=== PATIENT | female | born 1965 | race Two or more races ===

== ENCOUNTER 2016-12-23 09:52 | Observation (INO) | payer BC ==
[~2016-12-23] VITALS: Ht 149.9 cm; Wt 73.9 kg
[2016-12-23 10:39] LABS: HEMATOCRIT 39.3 % (36.0-46.0); MCH 31.7 PG (29.0-34.0); MCHC 33.6 G/DL (30.0-36.0); MCV 94.2 FL (83-99); PLATELET COUNT 165 K/uL (156-360); RBC DIS.WIDTH-CV 14.1 % (11.8-14.6); RED BLOOD COUNT 4.17 M/uL (3.80-5.20); WHITE BLOOD COUNT 7.2 K/uL (4.1-10.2)
[2016-12-23 10:48] LABS: CHLORIDE 108 mEq/L (99-109); POTASSIUM 3.7 mEq/L (3.7-5.4); SODIUM 143 mEq/L (136-147)
[2016-12-23 10:50] LABS: GLUCOSE 105 mg/dL (70-99)
[2016-12-23 10:51] LABS: ANION GAP 11 MEQ/L (2-14)
[2016-12-23 10:54] LABS: GFR ESTIMATE (CALCULATED) > 59 mL/min/; UREA NITROGEN (BUN) 10 mg/dL (9-23)
[2016-12-23 11:00] LABS: TROP-I INTERPRETATION NEGATIVE; TROPONIN-I < 0.01 ng/mL (0.0-0.30)
[2016-12-23 11:20] LABS: D-DIMER ELISA 0.25 mg/L FEU (< 0.57)
[2016-12-23] MEDS ORDERED: PEPCID20 MG PO (13:52)
[2016-12-23] MEDS ORDERED: ONE DAILY FOR1 EAC3 PO (13:52)
[2016-12-23 14:55] LABS: TROP-I INTERPRETATION NEGATIVE; TROPONIN-I < 0.01 ng/mL (0.0-0.30)
[2016-12-23 16:51] LABS: HDL CHOLESTEROL 64 MG/DL (Desirable>=50); LDL CHOLESTEROL 112 mg/dL (Desirable<100); NON-HDL CHOLESTEROL 143 mg/dL (Desirable<160); TOTAL CHOLESTEROL 207 mg/dL (Desirable<200); TRIGLYCERIDES 155 MG/DL (Normal: <150)
[2016-12-23 16:54] VITALS: BP 144/85
[2016-12-23 18:08] LABS: Estimated Average Glucose 108 mg/dL (70-123); HEMOGLOBIN A1c (GLYCOHEMOGLOB) 5.4 % HGB (Below 5.7)
[2016-12-23 19:09] VITALS: BP 138/65
[2016-12-23 19:57] LABS: TROP-I INTERPRETATION NEGATIVE; TROPONIN-I < 0.01 ng/mL (0.0-0.30)
[2016-12-23 22:36] VITALS: BP 129/60
[2016-12-24 00:56] LABS: TROP-I INTERPRETATION NEGATIVE; TROPONIN-I < 0.01 ng/mL (0.0-0.30)
[2016-12-24 03:59] VITALS: BP 106/57
[2016-12-24] MEDS ORDERED: LO-DOSE ASPIRIN81 M2 PO (08:00)
[2016-12-24 08:44] VITALS: BP 149/69
== END 2016-12-24 09:35 | disposition home or self-care (01) ==
LOC: EME 09:52 → EDOF 15:08 → 5WEST 15:08 → EDOF 15:08 → 5WEST 16:37
PROVIDERS: Emergency Medicine; Internal Medicine
DX: R07.89 Other chest pain (principal); R00.1 Bradycardia, unspecified; Z87.891 Personal history of nicotine dependence
CPT/HCPCS: 71020; 71275; 80048; 80061; 83036; 84484; 85027; 85379; 93005; 99281; 99285; G0378; J1650; J1885; J2270; J2405; J7030